=== PATIENT | female | born 1965 | race Hispanic/Latino ===

== ENCOUNTER 2019-08-15 14:22 | Emergency (ER) | payer OTHER ==
[2019-08-15 15:38] LABS: INR 0.93 (0.85-1.15); PARTIAL THROMBOPLASTIN TIME 22.7 SEC (26.3-35.5); PROTHROMBIN TIME 9.8 SEC (9.6-11.6)
[2019-08-15] MEDS ORDERED: SODIUM CHLORIDE 0.9% 1000ML 1,000 ML IV ONE ×2 (15:40→18:04)
[2019-08-15] MEDS ORDERED: ACETAMINOPHEN EXTRA STRENGTH 500 MG TABLET ONE (15:42)
[2019-08-15] MEDS ORDERED: CEFTRIAXONE SODIUM 2 GM VIAL ONE (15:55)
[2019-08-15] MEDS ORDERED: SODIUM CHLORIDE 0.9% 100 ML IV ONE (15:55)
[2019-08-15 16:10] LABS: BASOPHILS % (AUTO) 0.3 % (0.0-5.0); LYMPHOCYTES % (AUTO) 11.3 % (21.0-51.0); MEAN CORPUSCULAR HEMOGLOBIN 28.8 pg (27.0-33.0); MEAN CORPUSCULAR HGB CONC 32.4 g/dL (32.0-36.0); MEAN CORPUSCULAR VOLUME 88.8 fL (79-99); MONOCYTES % (AUTO) 5.7 % (3.0-13.0); NEUTROPHILS % (AUTO) 82.7 % (40.0-77.0); PLATELET COUNT (AUTO) 251 K/uL (130-400); RED BLOOD CELL COUNT(AUTO) 4.51 MIL/uL (4.00-5.50); RED CELL DISTRIBUTION WIDTH 13.5 % (11.0-15.5); WHITE BLOOD COUNT (AUTO) 16.8 K/uL (4.8-10.8)
[2019-08-15 16:11] LABS: APPEARANCE,URINE Clear (CLEAR); BILIRUBIN,URINE Negative (NEGATIVE); COLOR,URINE Yellow (YELLOW); GLUCOSE, URINE (UA) 250 mg/dL (NEGATIVE); KETONES,URINE 15 mg/dL (NEGATIVE); LEUKOCYTE ESTERASE ,URINE Negative (NEGATIVE); NITRATE,URINE Negative (NEGATIVE); OCCULT BLOOD,URINE Negative (NEGATIVE); PROTEIN,URINE Negative (NEGATIVE)
[2019-08-15 16:18] LABS: CARBON DIOXIDE 24 mmol/L (21-32); CHLORIDE 100 mmol/L (101-111); CREATININE 0.7 mg/dL (0.5-1.5); GLOMERULAR FILTR. RATE CALC 93 mL/min (>60); GLUCOSE,RANDOM 215 mg/dL (70-105); POTASSIUM 3.6 mmol/L (3.5-5.1); SODIUM SERUM 136 mmol/L (136-145); UREA NITROGEN, BLOOD 11 mg/dL (7-18)
[2019-08-15 16:21] LABS: BACTERIA,URINE Few /HPF (None Seen); MUCUS,URINE None Seen LPF (None Seen)
[2019-08-15 16:33] LABS: ALANINE AMINOTRANSFERASE 28 U/L (12-78); ALBUMIN 3.9 g/dL (3.5-5.0); ASPARTATE AMINOTRANSFERASE 23 U/L (10-37); BILIRUBIN,TOTAL 0.4 mg/dL (0.2-1.0); CREATINE KINASE, TOTAL 52 U/L (21-232); MYOGLOBIN 26 ng/mL (10-92); TOTAL PROTEIN, SERUM 8.5 g/dL (6.0-8.3); TROPONIN I < 0.04 ng/mL (0.00-0.06)
== END 2019-08-15 20:11 | disposition home or self-care (01) ==
LOC: EDH 14:22
DX: E86.0 Dehydration (principal); R50.9 Fever, unspecified; M79.10 Myalgia, unspecified site; E11.9 Type 2 diabetes mellitus without complications; E78.00 Pure hypercholesterolemia, unspecified; I10 Essential (primary) hypertension; R79.1 Abnormal coagulation profile; Z90.710 Acquired absence of both cervix and uterus; Z88.8 Allergy status to other drugs, medicaments and biological substances
CPT/HCPCS: 36415; 71045; 80053; 81001; 82550; 83605 ×2; 83874; 84484; 85025; 85610; 85730; 87040 ×2; 87088; 87804 ×2; 87880; 93005; 96361; 96374; 99285; J0696; J7030 ×2

== ENCOUNTER 2020-08-18 13:04 | Emergency (ER) | payer SELFPAY ==
[2020-08-18 13:43] LABS: BASOPHILS % (AUTO) 0.4 % (0.0-5.0); EOSINOPHILS % (AUTO) 1.1 % (0.0-8.0); HEMATOCRIT 37.7 % (36-48); LYMPHOCYTES % (AUTO) 29.6 % (21.0-51.0); MEAN CORPUSCULAR HEMOGLOBIN 28.8 pg (27.0-33.0); MEAN CORPUSCULAR HGB CONC 32.1 g/dL (32.0-36.0); MEAN CORPUSCULAR VOLUME 89.8 fL (79-99); MONOCYTES % (AUTO) 5.8 % (3.0-13.0); NEUTROPHILS % (AUTO) 62.7 % (40.0-77.0); PLATELET COUNT (AUTO) 311 K/uL (130-400); RED CELL DISTRIBUTION WIDTH 13.3 % (11.0-15.5); WHITE BLOOD COUNT (AUTO) 8.1 K/uL (4.8-10.8)
[2020-08-18] MEDS ORDERED: SODIUM CHLORIDE 0.9% 1000ML 1,000 ML IV ONE (13:53)
[2020-08-18] MEDS ORDERED: ONDANSETRON HCL 4 MG/2 ML VIAL ONE (13:53)
[2020-08-18] MEDS ORDERED: CLINDAMYCIN 600 MG/D5% WATER 50 ML IV ONE (13:53)
[2020-08-18] MEDS ORDERED: MORPHINE SULFATE 4 MG/1ML SYG ONE (13:54)
[2020-08-18] MEDS ORDERED: LIDOCAINE HCL 1% 20 ML VIAL ONE (14:47)
[2020-08-18 17:25] LABS: CREATININE 0.6 mg/dL (0.5-1.5); POTASSIUM 3.8 mmol/L (3.5-5.1)
[2020-08-18 17:30] LABS: ALBUMIN 3.6 g/dL (3.5-5.0); BILIRUBIN,TOTAL 0.1 mg/dL (0.2-1.0); TOTAL PROTEIN, SERUM 7.7 g/dL (6.0-8.3)
== END 2020-08-18 15:44 | disposition home or self-care (01) ==
LOC: EDH 13:04
DX: L02.416 Cutaneous abscess of left lower limb (principal); E11.9 Type 2 diabetes mellitus without complications; E78.00 Pure hypercholesterolemia, unspecified; I10 Essential (primary) hypertension; Z88.8 Allergy status to other drugs, medicaments and biological substances; Z90.710 Acquired absence of both cervix and uterus
CPT/HCPCS: 10060; 36415; 80053; 82948; 85025; 96365; 96366; 96375; 99284; J2270; J2405; J3490; J7030

== ENCOUNTER 2023-10-23 20:32 | Inpatient (IN) | payer OTHER ==
[~2023-10-23] VITALS: Ht 167.6 cm; Wt 76.2 kg
[2023-10-23 22:00] LABS: BASOPHILS # (AUTO) 0.05 K/uL (0.00-0.20); BASOPHILS % (AUTO) 0.5 % (0.0-5.0); EOSINOPHILS # (AUTO) 0.05 K/uL (0.00-0.70); EOSINOPHILS % (AUTO) 0.5 % (0.0-8.0); HEMATOCRIT 40.6 % (36-48); IMMATURE GRANULOCYTE ABSOLUTE 0.14 K/uL (0-1); LYMPHOCYTES # (AUTO) 2.8 K/uL (1.0-4.8); LYMPHOCYTES % (AUTO) 29.4 % (21.0-51.0); MEAN CORPUSCULAR HEMOGLOBIN 29.1 pg (27.0-33.0); MEAN CORPUSCULAR HGB CONC 32.5 g/dL (32.0-36.0); MEAN CORPUSCULAR VOLUME 89.6 fL (79-99); MONOCYTES # (AUTO) 0.7 K/uL (0.1-1.0); NEUTROPHILS # (AUTO) 5.7 K/uL (1.8-7.7); NEUTROPHILS % (AUTO) 61.1 % (40.0-77.0); PLATELET COUNT (AUTO) 297 K/uL (130-400); RED BLOOD CELL COUNT(AUTO) 4.53 MIL/uL (4.00-5.50); RED CELL DISTRIBUTION WIDTH 13.2 % (11.0-15.5); WHITE BLOOD COUNT (AUTO) 9.4 K/uL (4.8-10.8)
[2023-10-23 22:02] LABS: CREATININE 0.6 mg/dL (0.5-1.5); POTASSIUM 3.6 mmol/L (3.5-5.1)
[2023-10-23 22:04] LABS: INR < 0.93 (0.85-1.15); PROTHROMBIN TIME 10.3 SEC (9.6-11.6)
[2023-10-23 22:05] LABS: PARTIAL THROMBOPLASTIN TIME 27.9 SEC (26.3-35.5)
[2023-10-23 22:11] LABS: ALBUMIN 3.7 g/dL (3.5-5.0); BILIRUBIN,TOTAL 0.4 mg/dL (0.2-1.0); TOTAL PROTEIN, SERUM 8.6 g/dL (6.0-8.3)
[2023-10-23] MEDS ORDERED: ASPIRIN 81MG CHEW TAB PO ONE (22:30)
[2023-10-23] MEDS ORDERED: DEXTROSE 50%-WATER 50 ML DISP.SYRIN IV PRN (23:30)
[2023-10-23] MEDS ORDERED: ONDANSETRON 4MG INJ IV PRN (23:30)
[2023-10-23] MEDS ORDERED: HEPARIN 5,000 UNIT VIAL IV PRN (23:30)
[2023-10-23] MEDS ORDERED: POTASSIUM CHLORIDE 20MEQ/100ML 100 ML IV PRN ×2 (23:30)
[2023-10-23] MEDS ORDERED: HEPARIN 25,000 UNITS/250ML D5W 250 ML IV SCH (23:30)
[2023-10-23] MEDS ORDERED: POTASSIUM CHLORIDE 10% ELIXIR 20 MEQ/15 ML UDCUP PO PRN (23:30)
[2023-10-23] MEDS ORDERED: GLUCAGON 1MG KIT 1 MG ML IM PRN (23:30)
[2023-10-23] MEDS ORDERED: MORPHINE 2 MG SYG IVP PRN (23:30)
[2023-10-23] MEDS ORDERED: KCL 20 MEQ ERTAB PO PRN (23:30)
[2023-10-23] MEDS ORDERED: MAGNESIUM 2GM PREMIX 50ML 50 ML IV PRN (23:30)
[2023-10-24] VITALS (16 sets, daily range): BP systolic 91–132; BP diastolic 62–85; PULSE 89–100; RESP 11–22; O2SAT 98–99
[2023-10-24] MEDS: 0.9%NACL 1000ML 1,000 ML IV SCH ×3 (05:00→20:18)
[2023-10-24] MEDS: NITROGLYCERIN 1GM OINT 1 INCH/1GM TD SCH ×4 (05:00→23:14)
[2023-10-24 05:17] LABS: BASOPHILS # (AUTO) 0.04 K/uL (0.00-0.20); BASOPHILS % (AUTO) 0.4 % (0.0-5.0); EOSINOPHILS # (AUTO) 0.05 K/uL (0.00-0.70); EOSINOPHILS % (AUTO) 0.5 % (0.0-8.0); HEMATOCRIT 39.5 % (36-48); IMMATURE GRANULOCYTE ABSOLUTE 0.04 K/uL (0-1); LYMPHOCYTES # (AUTO) 3.6 K/uL (1.0-4.8); LYMPHOCYTES % (AUTO) 37.4 % (21.0-51.0); MEAN CORPUSCULAR HEMOGLOBIN 28.7 pg (27.0-33.0); MEAN CORPUSCULAR HGB CONC 32.2 g/dL (32.0-36.0); MEAN CORPUSCULAR VOLUME 89.4 fL (79-99); MONOCYTES # (AUTO) 0.7 K/uL (0.1-1.0); MONOCYTES % (AUTO) 7.3 % (3.0-13.0); NEUTROPHILS # (AUTO) 5.2 K/uL (1.8-7.7); PLATELET COUNT (AUTO) 256 K/uL (130-400); RED BLOOD CELL COUNT(AUTO) 4.42 MIL/uL (4.00-5.50); RED CELL DISTRIBUTION WIDTH 13.2 % (11.0-15.5); WHITE BLOOD COUNT (AUTO) 9.7 K/uL (4.8-10.8)
[2023-10-24 05:37] LABS: HEMOGLOBIN A1C 10.7 % (4.0-6.0)
[2023-10-24 05:46] LABS: ALBUMIN 3.2 g/dL (3.5-5.0); BILIRUBIN,TOTAL 0.5 mg/dL (0.2-1.0); CREATININE 0.5 mg/dL (0.5-1.5); MAGNESIUM 1.3 mg/dL (1.80-2.40); POTASSIUM 3.3 mmol/L (3.5-5.1); THYROID STIMULATING HORMONE 7.45 uIU/mL (0.36-3.74); TOTAL PROTEIN, SERUM 7.4 g/dL (6.0-8.3)
[2023-10-24 05:54] LABS: INR 0.94 (0.85-1.15); PROTHROMBIN TIME 10.9 SEC (9.6-11.6)
[2023-10-24 05:56] LABS: PARTIAL THROMBOPLASTIN TIME 56.2 SEC (26.3-35.5)
[2023-10-24] MEDS: INSULIN HUMULIN R 100 UNIT/ML 3ML SQ SCH ×4 (07:44→20:10)
[2023-10-24] MEDS: FAMOTIDINE 20MG VIAL IV SCH ×2 (08:57→19:58)
[2023-10-24] MEDS: ASPIRIN 81 MG EC TAB PO SCH (08:57)
[2023-10-24] MEDS ORDERED: TICAGRELOR 90 MG TABLET PO ONE (10:04)
[2023-10-24] MEDS ORDERED: KCL 20 MEQ ERTAB PO ONE (10:30)
[2023-10-24] MEDS: MAGNESIUM 2GM PREMIX 50ML 50 ML IV SCH ×2 (10:35→20:32)
[2023-10-24] MEDS ORDERED: METF-445 PO (11:14)
[2023-10-24] MEDS ORDERED: ATOR40TA69 PO (11:14)
[2023-10-24] MEDS ORDERED: INSU3INS5 SQ (11:14)
[2023-10-24] MEDS: METOPROLOL SUCCINATE 25 MG TAB.SR.24H PO SCH (15:58)
[2023-10-24] MEDS: ACETAMINOPHEN 325 MG TAB PO PRN ×2 (15:58→20:31)
[2023-10-24 17:18] LABS: MAGNESIUM 1.8 mg/dL (1.80-2.40); POTASSIUM 3.8 mmol/L (3.5-5.1)
[2023-10-24] MEDS: ATORVASTATIN 40 MG TABLET PO SCH (19:59)
[2023-10-24] MEDS: TICAGRELOR 90 MG TABLET PO SCH (19:59)
[2023-10-24] MEDS: ENOXAPARIN SODIUM 80 MG/0.8 ML SQ SCH (20:09)
[2023-10-25] VITALS (31 sets, daily range): BP systolic 90–133; BP diastolic 49–77; PULSE 74–93; RESP 12–24; O2SAT 95–97
[2023-10-25] MEDS: INSULIN HUMULIN R 100 UNIT/ML 3ML SQ SCH ×4 (06:34→21:13)
[2023-10-25] MEDS: FAMOTIDINE 20MG VIAL IV SCH (08:41)
[2023-10-25] MEDS: NITROGLYCERIN 1GM OINT 1 INCH/1GM TD SCH ×3 (08:41→23:30)
[2023-10-25] MEDS: ASPIRIN 81 MG EC TAB PO SCH (08:42)
[2023-10-25] MEDS: TICAGRELOR 90 MG TABLET PO SCH ×2 (08:43→21:09)
[2023-10-25 09:13] LABS: HEMATOCRIT 40.2 % (36-48); MEAN CORPUSCULAR HEMOGLOBIN 29.4 pg (27.0-33.0); MEAN CORPUSCULAR HGB CONC 32.3 g/dL (32.0-36.0); RED BLOOD CELL COUNT(AUTO) 4.42 MIL/uL (4.00-5.50); RED CELL DISTRIBUTION WIDTH 13.3 % (11.0-15.5); WHITE BLOOD COUNT (AUTO) 7.2 K/uL (4.8-10.8)
[2023-10-25 09:40] LABS: CREATININE 0.5 mg/dL (0.5-1.5); MAGNESIUM 1.7 mg/dL (1.80-2.40); PHOSPHORUS 3.4 mg/dL (2.5-4.9); POTASSIUM 4.2 mmol/L (3.5-5.1)
[2023-10-25] MEDS: METOPROLOL SUCCINATE 25 MG TAB.SR.24H PO SCH (10:48)
[2023-10-25] MEDS: MAGNESIUM 2GM PREMIX 50ML 50 ML IV SCH (11:07)
[2023-10-25] MEDS: ENOXAPARIN SODIUM 80 MG/0.8 ML SQ SCH ×2 (11:12→21:08)
[2023-10-25] MEDS ORDERED: METOPROLOL TARTRATE 1 MG/ML 5ML VIAL IV ONE ×2 (12:50→12:58)
[2023-10-25] MEDS ORDERED: IOHEXOL 350 MG/ML 100ML INFUS..BTL IV ONE (12:56)
[2023-10-25] MEDS: ACETAMINOPHEN 325 MG TAB PO PRN ×2 (13:27→21:09)
[2023-10-25] MEDS: 0.9%NACL 1000ML 1,000 ML IV SCH (15:45)
[2023-10-25] MEDS ORDERED: ONDANSETRON 4MG TABLET PO PRN (18:30)
[2023-10-25] MEDS: FAMOTIDINE 20MG TAB PO SCH (21:08)
[2023-10-25] MEDS: ATORVASTATIN 40 MG TABLET PO SCH (21:09)
[2023-10-26] VITALS (21 sets, daily range): BP systolic 110–158; BP diastolic 51–87; PULSE 76–107; RESP 4–97; TEMP 98; O2SAT 96–100
[2023-10-26] MEDS: 0.9%NACL 1000ML 1,000 ML IV SCH ×2 (06:15→21:03)
[2023-10-26] MEDS: NITROGLYCERIN 1GM OINT 1 INCH/1GM TD SCH ×3 (07:00→22:51)
[2023-10-26] MEDS: INSULIN HUMULIN R 100 UNIT/ML 3ML SQ SCH ×4 (07:30→20:56)
[2023-10-26] MEDS: ASPIRIN 81 MG EC TAB PO SCH (09:00)
[2023-10-26] MEDS: ENOXAPARIN SODIUM 80 MG/0.8 ML SQ SCH ×2 (09:00→20:54)
[2023-10-26] MEDS: TICAGRELOR 90 MG TABLET PO SCH ×2 (09:00→20:54)
[2023-10-26] MEDS: FAMOTIDINE 20MG TAB PO SCH ×2 (09:00→20:54)
[2023-10-26] MEDS: METOPROLOL SUCCINATE 25 MG TAB.SR.24H PO SCH (09:00)
[2023-10-26] MEDS: ACETAMINOPHEN 325 MG TAB PO PRN (09:44)
[2023-10-26] MEDS: ATORVASTATIN 40 MG TABLET PO SCH (20:54)
[2023-10-27] VITALS (16 sets, daily range): BP systolic 109–144; BP diastolic 54–77; PULSE 67–102; RESP 16–18; O2SAT 96–100
[2023-10-27 04:25] LABS: BASOPHILS # (AUTO) 0.02 K/uL (0.00-0.20); BASOPHILS % (AUTO) 0.3 % (0.0-5.0); EOSINOPHILS # (AUTO) 0.04 K/uL (0.00-0.70); EOSINOPHILS % (AUTO) 0.6 % (0.0-8.0); HEMATOCRIT 40.8 % (36-48); IMMATURE GRANULOCYTE ABSOLUTE 0.04 K/uL (0-1); LYMPHOCYTES # (AUTO) 2.4 K/uL (1.0-4.8); MEAN CORPUSCULAR HEMOGLOBIN 29.5 pg (27.0-33.0); MEAN CORPUSCULAR HGB CONC 32.6 g/dL (32.0-36.0); MEAN CORPUSCULAR VOLUME 90.5 fL (79-99); MONOCYTES # (AUTO) 0.6 K/uL (0.1-1.0); MONOCYTES % (AUTO) 9.2 % (3.0-13.0); NEUTROPHILS # (AUTO) 3.9 K/uL (1.8-7.7); NEUTROPHILS % (AUTO) 55.3 % (40.0-77.0); PLATELET COUNT (AUTO) 225 K/uL (130-400); RED BLOOD CELL COUNT(AUTO) 4.51 MIL/uL (4.00-5.50); RED CELL DISTRIBUTION WIDTH 13.3 % (11.0-15.5)
[2023-10-27 04:42] LABS: CREATININE 0.4 mg/dL (0.5-1.5); MAGNESIUM 1.7 mg/dL (1.80-2.40); PHOSPHORUS 4.1 mg/dL (2.5-4.9); POTASSIUM 3.3 mmol/L (3.5-5.1)
[2023-10-27] MEDS: INSULIN HUMULIN R 100 UNIT/ML 3ML SQ SCH ×4 (06:47→20:19)
[2023-10-27] MEDS: NITROGLYCERIN 1GM OINT 1 INCH/1GM TD SCH ×3 (06:51→23:30)
[2023-10-27] MEDS: 0.9%NACL 1000ML 1,000 ML IV SCH ×2 (07:30→20:21)
[2023-10-27] MEDS: TICAGRELOR 90 MG TABLET PO SCH (09:00)
[2023-10-27] MEDS: ASPIRIN 81 MG EC TAB PO SCH (10:06)
[2023-10-27] MEDS: FAMOTIDINE 20MG TAB PO SCH ×2 (10:06→20:17)
[2023-10-27] MEDS: METOPROLOL SUCCINATE 25 MG TAB.SR.24H PO SCH (10:06)
[2023-10-27] MEDS ORDERED: FENTANYL CITRATE PF 50 MCG/1 ML 2ML VIAL ONE (12:05)
[2023-10-27] MEDS ORDERED: LIDOCAINE HCL 400MG/20ML VIAL ONE (12:05)
[2023-10-27] MEDS ORDERED: BIVALIRUDIN 250 MG/VIAL IV ONE (12:05)
[2023-10-27] MEDS ORDERED: NITROGLYCERIN 50MG VIAL ONE (12:06)
[2023-10-27] MEDS ORDERED: IOHEXOL 350 MG/ML 100ML INFUS..BTL IV ONE (12:06)
[2023-10-27] MEDS ORDERED: IOHEXOL-350 50ML VIAL IV ONE ×2 (12:06→13:20)
[2023-10-27] MEDS ORDERED: MIDAZOLAM HCL 1 MG/ML 2ML VIAL ONE (12:06)
[2023-10-27] MEDS ORDERED: LABETALOL 20MG SYG IV ONE (13:19)
[2023-10-27] MEDS ORDERED: ASPI-1005 PO (13:46)
[2023-10-27] MEDS ORDERED: CLOP-31 PO (13:46)
[2023-10-27] MEDS ORDERED: METO-391 PO (13:59)
[2023-10-27] MEDS ORDERED: 0.9%NACL 1000ML 1,000 ML IV SCH (14:00)
[2023-10-27] MEDS ORDERED: KCL 20 MEQ ERTAB PO ONE (17:00)
[2023-10-27] MEDS: ATORVASTATIN 40 MG TABLET PO SCH (20:18)
[2023-10-27] MEDS: ACETAMINOPHEN 325 MG TAB PO PRN (20:18)
[2023-10-28 00:11] VITALS: BP 121/65; PULSE 83; RESP 18
[2023-10-28 03:08] VITALS: BP 134/78; PULSE 79; RESP 18
[2023-10-28 04:40] LABS: BASOPHILS # (AUTO) 0.02 K/uL (0.00-0.20); BASOPHILS % (AUTO) 0.3 % (0.0-5.0); EOSINOPHILS # (AUTO) 0.07 K/uL (0.00-0.70); HEMATOCRIT 38.4 % (36-48); IMMATURE GRANULOCYTE ABSOLUTE 0.04 K/uL (0-1); LYMPHOCYTES # (AUTO) 2.4 K/uL (1.0-4.8); LYMPHOCYTES % (AUTO) 34.2 % (21.0-51.0); MEAN CORPUSCULAR HEMOGLOBIN 28.8 pg (27.0-33.0); MEAN CORPUSCULAR HGB CONC 31.8 g/dL (32.0-36.0); MEAN CORPUSCULAR VOLUME 90.8 fL (79-99); MONOCYTES # (AUTO) 0.7 K/uL (0.1-1.0); MONOCYTES % (AUTO) 9.6 % (3.0-13.0); NEUTROPHILS # (AUTO) 3.8 K/uL (1.8-7.7); NEUTROPHILS % (AUTO) 54.3 % (40.0-77.0); PLATELET COUNT (AUTO) 237 K/uL (130-400); RED BLOOD CELL COUNT(AUTO) 4.23 MIL/uL (4.00-5.50); RED CELL DISTRIBUTION WIDTH 13.2 % (11.0-15.5)
[2023-10-28 05:00] LABS: CREATININE 0.6 mg/dL (0.5-1.5); POTASSIUM 4.1 mmol/L (3.5-5.1)
[2023-10-28] MEDS: NITROGLYCERIN 1GM OINT 1 INCH/1GM TD SCH (05:22)
[2023-10-28] MEDS: INSULIN HUMULIN R 100 UNIT/ML 3ML SQ SCH ×2 (06:09→12:55)
[2023-10-28 07:19] VITALS: O2SAT 96
[2023-10-28 08:00] VITALS: BP 131/71; PULSE 79; RESP 16
[2023-10-28] MEDS ORDERED: LOSARTAN 25 MG TABLET PO SCH (09:00)
[2023-10-28] MEDS ORDERED: CLOPIDOGREL 75MG TAB PO SCH (09:00)
[2023-10-28] MEDS: FAMOTIDINE 20MG TAB PO SCH (09:20)
[2023-10-28] MEDS: METOPROLOL SUCCINATE 25 MG TAB.SR.24H PO SCH (09:20)
[2023-10-28] MEDS: ASPIRIN 81 MG EC TAB PO SCH (09:20)
[2023-10-28 11:50] VITALS: BP 133/75; PULSE 76; RESP 16
[2023-10-28] MEDS ORDERED: AEC81 PO (12:21)
[2023-10-28] MEDS ORDERED: LOSA-417 PO (12:21)
[2023-10-28] MEDS ORDERED: CLOP-31 PO (12:21)
== END 2023-10-28 13:20 | disposition home or self-care (01) | DRG 281 ==
LOC: EDH 20:32 → EDHIP 20:33 → 2CH 10-24 09:39 → 2DH 10-26 19:11
PROVIDERS: ADMIT Internal Medicine; ATTEND Internal Medicine
PROC: B2211ZZ Computerized Tomography (CT Scan) of Multiple Coronary Arteries using Low Osmolar Contrast (ICD-10-PCS; 2023-10-26)
PROC: 4A023N7 Measurement of Cardiac Sampling and Pressure, Left Heart, Percutaneous Approach (ICD-10-PCS; principal; 2023-10-27)
PROC: B2111ZZ Fluoroscopy of Multiple Coronary Arteries using Low Osmolar Contrast (ICD-10-PCS; 2023-10-27)
PROC: B2151ZZ Fluoroscopy of Left Heart using Low Osmolar Contrast (ICD-10-PCS; 2023-10-27)
DX: I21.4 Non-ST elevation (NSTEMI) myocardial infarction (principal); I51.81 Takotsubo syndrome; E11.65 Type 2 diabetes mellitus with hyperglycemia; E87.6 Hypokalemia; R94.6 Abnormal results of thyroid function studies; E78.5 Hyperlipidemia, unspecified; I25.10 Atherosclerotic heart disease of native coronary artery without angina pectoris; Z79.82 Long term (current) use of aspirin; Z85.038 Personal history of other malignant neoplasm of large intestine; Z92.21 Personal history of antineoplastic chemotherapy; Z79.4 Long term (current) use of insulin; Z88.8 Allergy status to other drugs, medicaments and biological substances
CPT/HCPCS: 36415; 71045; 75574; 80048; 80053; 80061; 82948; 83036; 83735; 84100; 84132; 84443; 84484; 85025; 85027; 85610; 85730; 93005; 93306; 93356; 93458; 99156; 99157; 99291; C1760; C1894; G0378; J0583; J1644; J1650; J1815; J2250; J3010; J3475; J3490; J7030; Q9967; Q9965